=== PATIENT | male | born 1975 | race Caucasian/White ===

== ENCOUNTER 2016-12-26 08:34 | Inpatient (IN) | payer MEDICARE ==
[~2016-12-26] VITALS: Ht 180.3 cm; Wt 96.2 kg
[2016-12-26 10:03] LABS: HEMOGLOBIN 12.9 gm/dl (14.0-17.5); RED BLOOD COUNT 3.92 M/UL (4.20-5.50); WHITE BLOOD COUNT 14.4 K/UL (4.5-11.0)
[2016-12-26 10:19] LABS: BUN/CREATININE RATIO 19 (0-10)
[2016-12-26] MEDS ORDERED: NOVOLIN 70100 UNIT/1 SQ (13:56)
[2016-12-26] MEDS ORDERED: SPIRONOLACTONE25 MG PO (13:57)
[2016-12-27 06:41] LABS: HEMOGLOBIN 11.8 gm/dl (14.0-17.5); RED BLOOD COUNT 3.64 M/UL (4.20-5.50); WHITE BLOOD COUNT 14.6 K/UL (4.5-11.0)
[2016-12-27 06:58] LABS: BUN/CREATININE RATIO 13 (0-10)
[2016-12-28 04:35] LABS: HEMOGLOBIN 10.6 gm/dl (14.0-17.5); RED BLOOD COUNT 3.29 M/UL (4.20-5.50); WHITE BLOOD COUNT 14.8 K/UL (4.5-11.0)
[2016-12-28 04:40] LABS: BUN/CREATININE RATIO 9 (0-10)
[2016-12-29 06:12] LABS: BUN/CREATININE RATIO 14 (0-10)
[2016-12-30 04:01] LABS: HEMOGLOBIN 9.5 gm/dl (14.0-17.5); RED BLOOD COUNT 3.01 M/UL (4.20-5.50); WHITE BLOOD COUNT 11.7 K/UL (4.5-11.0)
[2016-12-30 04:13] LABS: BUN/CREATININE RATIO 13 (0-10)
[2016-12-31 04:17] LABS: HEMOGLOBIN 10.2 gm/dl (14.0-17.5); RED BLOOD COUNT 3.18 M/UL (4.20-5.50); WHITE BLOOD COUNT 11.8 K/UL (4.5-11.0)
[2016-12-31 04:33] LABS: BUN/CREATININE RATIO 13 (0-10)
[2017-01-01 04:13] LABS: BUN/CREATININE RATIO 17 (0-10)
[2017-01-01 04:17] LABS: HEMOGLOBIN 11.1 gm/dl (14.0-17.5); RED BLOOD COUNT 3.4 M/UL (4.20-5.50)
[2017-01-02 03:55] LABS: BUN/CREATININE RATIO 21 (0-10)
[2017-01-02 03:59] LABS: HEMOGLOBIN 10.8 gm/dl (14.0-17.5); RED BLOOD COUNT 3.36 M/UL (4.20-5.50); WHITE BLOOD COUNT 12.6 K/UL (4.5-11.0)
[2017-01-03 04:09] LABS: HEMOGLOBIN 9.6 gm/dl (14.0-17.5)
[2017-01-03 04:25] LABS: RED BLOOD COUNT 3.02 M/UL (4.20-5.50)
[2017-01-03 04:38] LABS: BUN/CREATININE RATIO 23 (0-10)
[2017-01-04 06:27] LABS: RED BLOOD COUNT 3.15 M/UL (4.20-5.50); WHITE BLOOD COUNT 12.6 K/UL (4.5-11.0)
[2017-01-04 06:52] LABS: BUN/CREATININE RATIO 16 (0-10)
[2017-01-04] MEDS ORDERED: NOVOLOG 10100 UNITS1 SQ (17:27)
[2017-01-04] MEDS ORDERED: LEVEMIR100 UNIT/1 SQ (17:27)
[2017-01-04] MEDS ORDERED: NORCO 7.5-3251 EACH PO (17:28)
[2017-01-04] MEDS ORDERED: LOPRESSOR50 MG PO (17:29)
[2017-01-04] MEDS ORDERED: ANCEF 1 GM/1 G/50 ML IV (17:36)
== END 2017-01-04 18:43 | disposition home health service (06) | DRG 854 ==
LOC: ER1 08:34 → ZEROF 12:50 → CCU 12:50 → PROG CARE 12:50 → CCU 12-27 17:53 → PROG CARE 12-28 17:48 → M/S 01-03 20:15
PROVIDERS: Emergency Medicine; Internal Medicine; Orthopaedic Surgery; ADMIT Internal Medicine
PROC: 0KBQ0ZZ Excision of Right Upper Leg Muscle, Open Approach (ICD-10-PCS; principal; 2016-12-28 23:15)
PROC: 0JBL0ZZ Excision of Right Upper Leg Subcutaneous Tissue and Fascia, Open Approach (ICD-10-PCS; principal; 2016-12-28 23:15)
PROC: 0KBQ0ZZ Excision of Right Upper Leg Muscle, Open Approach (ICD-10-PCS; 2017-01-02)
PROC: 0JQL0ZZ Repair Right Upper Leg Subcutaneous Tissue and Fascia, Open Approach (ICD-10-PCS; 2017-01-02)
DX: A41.9 Sepsis, unspecified organism (principal); M60.003 Infective myositis, unspecified right leg; I96 Gangrene, not elsewhere classified; L02.415 Cutaneous abscess of right lower limb; L03.115 Cellulitis of right lower limb; E11.65 Type 2 diabetes mellitus with hyperglycemia; R50.9 Fever, unspecified; E86.0 Dehydration; R00.0 Tachycardia, unspecified; B95.62 Methicillin resistant Staphylococcus aureus infection as the cause of diseases classified elsewhere; D64.9 Anemia, unspecified; I10 Essential (primary) hypertension; R53.1 Weakness
CPT/HCPCS: 36415; 76881; 80048; 80053; 80202; 82550; 82607; 82728; 82746; 82962; 83036; 83540; 83550; 83605; 83735; 84100; 84443; 85025; 85027; 86140; 87040; 87070; 87077; 87186; 87205; 93005; 93925; 93971; 96361; 96365; 96366; 96372; 96375; 97116; 99285; J0690; J1100; J1650; J1815; J2250; J2270; J2405; J2543; J2765; J3010; J3370; J7030; J7050; J7120

== ENCOUNTER → 2017-01-19 | Outpatient (CLI) | payer MEDICARE ==
[~2017-01-19] MED LIST: AMIODARONE HCL200 MG PO; ANCEF 1 GM/1 G/50 ML IV; ASPIR-LOW81 MG PO; LEVEMIR100 UNIT/1 SQ; LOPRESSOR 50 MG50 MG PO; LOPRESSOR100 MG PO; LOPRESSOR50 MG PO; NORCO 7.5-3251 EACH PO; NOVOLIN 70100 UNIT/1 SQ; NOVOLOG 10100 UNITS1 SQ; PERCOCET 10-321 EACH PO; ROCEPHIN 22 G/50 ML IV; SPIRONOLACTONE25 MG PO
== END ==
LOC: OPSV 13:00
DX: L02.419 Cutaneous abscess of limb, unspecified (principal)
CPT/HCPCS: G0463

== ENCOUNTER 2017-02-06 19:06 | Inpatient (IN) | payer BC, OTHER ==
[~2017-02-06] VITALS: Ht 180.3 cm; Wt 87.8 kg
[~2017-02-06 19:06] MED LIST changes: -AMIODARONE HCL200 MG PO; -ASPIR-LOW81 MG PO; -LOPRESSOR 50 MG50 MG PO; -LOPRESSOR100 MG PO; -PERCOCET 10-321 EACH PO; -ROCEPHIN 22 G/50 ML IV
[2017-02-06 22:36] LABS: RED BLOOD COUNT 3.82 M/UL (4.20-5.50); WHITE BLOOD COUNT 19.1 K/UL (4.5-11.0)
[2017-02-06 23:12] LABS: BUN/CREATININE RATIO 19 (0-10)
[2017-02-07 06:09] LABS: HEMOGLOBIN 10.2 gm/dl (14.0-17.5); RED BLOOD COUNT 3.57 M/UL (4.20-5.50); WHITE BLOOD COUNT 17.1 K/UL (4.5-11.0)
[2017-02-07 06:17] LABS: BUN/CREATININE RATIO 20 (0-10)
[2017-02-07] MEDS ORDERED: LOPRESSOR 50 MG50 MG PO (14:20)
[2017-02-08 06:19] LABS: BUN/CREATININE RATIO 26 (0-10)
[2017-02-08 06:21] LABS: WHITE BLOOD COUNT 15.9 K/UL (4.5-11.0)
[2017-02-08 06:24] LABS: HEMOGLOBIN 7.1 gm/dl (14.0-17.5); RED BLOOD COUNT 2.51 M/UL (4.20-5.50)
[2017-02-08 15:21] LABS: HEMOGLOBIN 7.3 gm/dl (14.0-17.5)
[2017-02-09 05:35] LABS: HEMOGLOBIN 7.1 gm/dl (14.0-17.5); RED BLOOD COUNT 2.48 M/UL (4.20-5.50); WHITE BLOOD COUNT 13.8 K/UL (4.5-11.0)
[2017-02-09 05:56] LABS: BUN/CREATININE RATIO 24 (0-10)
[2017-02-10 03:36] LABS: HEMOGLOBIN 7.4 gm/dl (14.0-17.5); RED BLOOD COUNT 2.56 M/UL (4.20-5.50); WHITE BLOOD COUNT 11.6 K/UL (4.5-11.0)
[2017-02-11 04:21] LABS: HEMOGLOBIN 7.6 gm/dl (14.0-17.5); RED BLOOD COUNT 2.61 M/UL (4.20-5.50); WHITE BLOOD COUNT 11.3 K/UL (4.5-11.0)
[2017-02-11 04:36] LABS: BUN/CREATININE RATIO 13 (0-10)
[2017-02-12 06:29] LABS: HEMOGLOBIN 8.6 gm/dl (14.0-17.5); WHITE BLOOD COUNT 12.7 K/UL (4.5-11.0)
[2017-02-12 06:30] LABS: RED BLOOD COUNT 2.95 M/UL (4.20-5.50)
[2017-02-12 07:10] LABS: BUN/CREATININE RATIO 13 (0-10)
[2017-02-12 15:04] LABS: HEMOGLOBIN 8.4 gm/dl (14.0-17.5)
[2017-02-13 03:52] LABS: HEMOGLOBIN 9.3 gm/dl (14.0-17.5)
[2017-02-14 04:19] LABS: HEMOGLOBIN 8.6 gm/dl (14.0-17.5); RED BLOOD COUNT 2.9 M/UL (4.20-5.50); WHITE BLOOD COUNT 10.2 K/UL (4.5-11.0)
[2017-02-14 04:30] LABS: BUN/CREATININE RATIO 13 (0-10)
[2017-02-14] MEDS ORDERED: PERCOCET 10-321 EACH PO (11:17)
[2017-02-14] MEDS ORDERED: LOPRESSOR100 MG PO (11:18)
[2017-02-14] MEDS ORDERED: AMIODARONE HCL200 MG PO (11:18)
[2017-02-14] MEDS ORDERED: LOPRESSOR50 MG PO (11:19)
[2017-02-14] MEDS ORDERED: ROCEPHIN 22 G/50 ML IV (11:20)
[2017-02-14] MEDS ORDERED: ASPIR-LOW81 MG PO (11:28)
== END 2017-02-14 15:39 | disposition home or self-care (01) | DRG 854 ==
LOC: ER1 19:06 → M/S 02-07 00:25 → ZEROF 02-07 00:25 → M/S 02-07 01:20 → CCU 02-09 05:00 → M/S 02-10 15:52
PROVIDERS: Emergency Medicine; Internal Medicine; Orthopaedic Surgery; Physician Assistant; ADMIT Hospitalist
PROC: 0KBR0ZZ Excision of Left Upper Leg Muscle, Open Approach (ICD-10-PCS; principal; 2017-02-07 14:45)
PROC: 5A2204Z Restoration of Cardiac Rhythm, Single (ICD-10-PCS; 2017-02-09)
PROC: B246ZZ4 Ultrasonography of Right and Left Heart, Transesophageal (ICD-10-PCS; 2017-02-09)
PROC: 30233N1 Transfusion of Nonautologous Red Blood Cells into Peripheral Vein, Percutaneous Approach (ICD-10-PCS; 2017-02-09)
PROC: 0JBM0ZZ Excision of Left Upper Leg Subcutaneous Tissue and Fascia, Open Approach (ICD-10-PCS; 2017-02-13)
PROC: 0JQM0ZZ Repair Left Upper Leg Subcutaneous Tissue and Fascia, Open Approach (ICD-10-PCS; 2017-02-13)
DX: A41.01 Sepsis due to Methicillin susceptible Staphylococcus aureus (principal); L02.416 Cutaneous abscess of left lower limb; L03.116 Cellulitis of left lower limb; D62 Acute posthemorrhagic anemia; I48.91 Unspecified atrial fibrillation; E11.65 Type 2 diabetes mellitus with hyperglycemia; Z48.1 Encounter for planned postprocedural wound closure; I10 Essential (primary) hypertension; E87.5 Hyperkalemia; Z87.891 Personal history of nicotine dependence; Z91.14 Patient's other noncompliance with medication regimen; Z86.19 Personal history of other infectious and parasitic diseases; Z79.4 Long term (current) use of insulin; Z79.891 Long term (current) use of opiate analgesic; Z79.899 Other long term (current) drug therapy; Z98.890 Other specified postprocedural states; Z83.3 Family history of diabetes mellitus; Z82.49 Family history of ischemic heart disease and other diseases of the circulatory system; Z82.3 Family history of stroke
CPT/HCPCS: ECHO; 36415; 36430; 80048; 80053; 82962; 83735; 84484; 85014; 85018; 85025; 85027; 86140; 86850; 86900; 86901; 86920; 87040; 87070; 87077; 87081; 87186; 87205; 93005; 93306; 93312; 93320; 96372; 96374; 97110; 97116; 97530; 99284; J0690; J0696; J1200; J1817; J2250; J2270; J2405; J2710; J3010; J3370; J7030; J7050; J7120; P9016

== ENCOUNTER → 2017-02-15 | Outpatient (CLI) | payer OTHER ==
[~2017-02-15] VITALS: Ht 180.3 cm; Wt 87.5 kg
[~2017-02-15] MED LIST changes: +AMIODARONE HCL200 MG PO; +ASPIR-LOW81 MG PO; +LOPRESSOR 50 MG50 MG PO; +LOPRESSOR100 MG PO; +PERCOCET 10-321 EACH PO; +ROCEPHIN 22 G/50 ML IV
== END ==
LOC: OPSV 09:30
DX: L02.419 Cutaneous abscess of limb, unspecified (principal); L03.119 Cellulitis of unspecified part of limb
CPT/HCPCS: 96365; J0696

== ENCOUNTER → 2017-02-16 | Outpatient (CLI) | payer OTHER ==
[~2017-02-16] VITALS: Ht 180.3 cm; Wt 87.5 kg
== END ==
LOC: OPSV 12:59
DX: L02.419 Cutaneous abscess of limb, unspecified (principal); L03.119 Cellulitis of unspecified part of limb
CPT/HCPCS: 96372; J0696

== ENCOUNTER → 2017-02-17 | Outpatient (CLI) | payer OTHER ==
[~2017-02-17] VITALS: Ht 180.3 cm; Wt 87.5 kg
== END ==
LOC: OPSV 08:56
DX: L02.419 Cutaneous abscess of limb, unspecified (principal)
CPT/HCPCS: 96372; J0696

== ENCOUNTER → 2017-02-18 | Outpatient (CLI) | payer OTHER | LOC: OPSV 06:18 → OPS 06:18 | DX: L02.419 Cutaneous abscess of limb, unspecified (principal) | CPT/HCPCS: 96372; J0696 ==

== ENCOUNTER → 2017-02-19 | Outpatient (CLI) | payer OTHER | LOC: EROP 19:29 | DX: L02.419 Cutaneous abscess of limb, unspecified (principal) | CPT/HCPCS: 96372; J0696 ==

== ENCOUNTER → 2017-02-20 | Outpatient (CLI) | payer OTHER ==
[~2017-02-20] VITALS: Ht 180.3 cm; Wt 87.5 kg
== END ==
LOC: OPSV 11:30
DX: L02.419 Cutaneous abscess of limb, unspecified (principal)
CPT/HCPCS: 96372; J0696

== ENCOUNTER → 2017-02-21 | Outpatient (CLI) | payer OTHER | LOC: OPSV 11:16 | DX: L02.419 Cutaneous abscess of limb, unspecified (principal); L03.119 Cellulitis of unspecified part of limb | CPT/HCPCS: 96372; J0696 ==